=== PATIENT | male | born 1970 | race Caucasian/White ===

== ENCOUNTER 2023-05-22 10:03 | Day surgery (SDC) | payer OTHER ==
[2023-05-15 15:23] LABS: BASOPHILS % (AUTO) 0.4 % (0-1); EOSINOPHILS # (AUTO) 0.1 X10'3 (0-0.9); EOSINOPHILS % (AUTO) 1.9 % (0-6); LYMPHOCYTES # (AUTO) 1.2 X10'3 (1.1-4.8); LYMPHOCYTES % (AUTO) 15.8 % (21-51); MEAN CORPUSCULAR HEMOGLOBIN 30.5 PG (27.0-31.0); MEAN CORPUSCULAR VOLUME 92.4 FL (78-98); MEAN PLATELET VOLUME 7.4 FL (7.4-10.4); MONOCYTES # (AUTO) 0.5 X10'3 (0-0.9); NEUTROPHILS # (AUTO) 5.9 X10'3 (1.8-7.7); NEUTROPHILS % (AUTO) 75.9 % (42-75); PRE OP HEMATOCRIT 50.2 % (42.0-52.0); PRE OP HEMOGLOBIN 16.6 g/dL (14.0-17.9); PRE OP PLATELET COUNT 253 X10'3 (140-440); PRE OP WHITE BLOOD COUNT 7.7 10'3 (4.8-10.8); RED BLOOD COUNT 5.43 X10'6 (4.70-6.10); RED CELL DISTRIBUTION WIDTH 13.1 % (11.5-14.5)
[2023-05-15 15:33] LABS: BILIRUBIN,URINE NEGATIVE (Neg); CLARITY,URINE CLOUDY (Clear); COLOR,URINE YELLOW (Yellow); GLUCOSE, URINE NEGATIVE (Neg); KETONES,URINE NEGATIVE (Neg); LEUKOCYTE ESTERASE ,URINE NEGATIVE (Neg); NITRITES, URINE NEGATIVE (Neg); OCCULT BLOOD,URINE NEGATIVE (Neg); PROTEIN,URINE NEGATIVE (Neg); UROBILINOGEN,URINE 0.2 E.U/dL (0.2-1.0)
[2023-05-15 15:39] LABS: UA COLLECTION TYPE CLN CATCH MIDSTREAM
[2023-05-15 15:40] LABS: ALBUMIN 4.1 G/DL (3.4-5.0); ALBUMIN/GLOBULIN RATIO 1.2 (1.1-1.5); ALKALINE PHOSPHATASE 62 IU/L (46-116); BLOOD UREA NITROGEN 10 MG/DL (7-18); BUN/CREATININE RATIO 10.9 (10.0-20.0); CALCIUM 9.1 MG/DL (8.5-10.1); CHLORIDE 104 MMOL/L (99-107); CREATININE 0.92 MG/DL (0.60-1.10); PRE OP ALT 26 U/L (30-65); PRE OP ANION GAP 6 (8-16); PRE OP AST 15 U/L (10-37); PRE OP BILIRUB, TOTAL 0.4 MG/DL (0.0-1.0); PRE OP POTASSIUM 3.9 MMOL/L (3.4-5.1); PRE OP SODIUM 142 MMOL/L (135-145); TOTAL CARBON DIOXIDE 31.6 MMOL/L (24-32); TOTAL PROTEIN 7.4 G/DL (6.4-8.2); eGFR 87 ML/MIN
[2023-05-15 15:51] LABS: PRE OP GLUCOSE 108 MG/DL (70-104)
[2023-05-15 15:55] LABS: BACTERIA,URINE FEW /HPF (Neg); MUCUS STRANDS MANY /LPF (Neg); SQUAMOUS EPITHELIAL CELL,UR FEW /LPF (FEW); WBC,URINE 0-4 /HPF (0-4)
[2023-05-22] VITALS (13 sets, daily range): BP systolic 97–150; BP diastolic 58–89; PULSE 56–81; RESP 14–21; TEMP 98.1; O2SAT 92–100
[~2023-05-22] VITALS: Ht 177.8 cm; Wt 68.0 kg
[~2023-05-22 10:03] MED LIST: BUPIVAcaine/PF 2.5 mg/ml (0.25%) 30ml vial ONE; NO HOME MEDS; cefazolin 2gm/D5W 100mL 100 ML IV ONE; famotidine 20mg tablet PO ONE; ringers solution, lacted 1,000 ML IV SCH
--- NOTE | 2023-05-22 12:20 | NUR ---
SURGERY DELAYED R/T ADD ON CASE. PT AND NOTIFIED OF DELAY. ADMIT PROCESS COMPLETED MINUS IV INSERTION UNTIL CLOSER TO SURGERY TIME R/T POSSIBLE CANCEL. 1 CUP OF APPLE JUICE GIVEN PER PT REQUEST. TRANSFER OF CARE TO JESSICA FLEMING, REPORT GIVEN WITH ALL QUESTIONS ANSWERED.
--- NOTE | 2023-05-22 13:25 | NUR ---
INITIATED IV AND TOOK A BLOOD SUGAR. AB=[id number]
[2023-05-22] MEDS ORDERED: fentaNYL/PF 50MCG/1 ML 2ML syringe ONE (16:39)
[2023-05-22] MEDS ORDERED: midazolam 1 mg/ML 2ml injection ONE (16:40)
[2023-05-22] MEDS ORDERED: propofol inj 20 ML IV ONE (16:40)
[2023-05-22] MEDS ORDERED: rocuronium 10mg/ml inj IV ONE (16:40)
[2023-05-22] MEDS ORDERED: acetaminophen 1000 MG/100ml vial IV ONE (16:43)
[2023-05-22] MEDS ORDERED: sevoflurane 250ml liquid IH ONE (16:43)
[2023-05-22] MEDS ORDERED: ringers solution, lacted 1,000 ML IV SCH (16:45)
[2023-05-22] MEDS ORDERED: ketorolac trometh. 30mg/ml inj. IV ONE (16:45)
[2023-05-22] MEDS ORDERED: ondansetron/PF 4mg/2ml inj IV PRN (16:45)
[2023-05-22] MEDS ORDERED: proCHLORperazine 10 MG/2 ml inj IV PRN (16:45)
[2023-05-22] MEDS ORDERED: meperidine/PF 25mg/ml syringe IV PRN ×2 (16:45)
[2023-05-22] MEDS ORDERED: morphine 2 MG/ML inj. syringe IV PRN (16:45)
[2023-05-22] MEDS ORDERED: dexamethasone sod phosphate 4mg/ml inj. ONE (17:00)
[2023-05-22] MEDS ORDERED: BUPIVAcaine/PF 2.5 mg/ml (0.25%) 30ml vial IJ ONE (17:23)
[2023-05-22] MEDS ORDERED: ondansetron/PF 4mg/2ml inj ONE (18:02)
[2023-05-22] MEDS ORDERED: glycopyrrolate 0.2mg/ml inj ONE (18:32)
[2023-05-22] MEDS ORDERED: neostigmine methylsulfate 1 MG/ML 10ml vial ONE (18:32)
--- NOTE | 2023-05-22 18:44 | NUR ---
Received from OR via [facility] , accompanied by Anesthesiologist SERGEY and report given by Anesthesiolgist. [facility] UNABLE TO OBTAIN A BP 20G PIV IN LEFT HAND RUNNING LR AT 100. PATIENT ON 10L MASK WITH 100% SATURATIONS. MEDICATED FOR PAIN UPON ARRIVAL AND WILL CONTINUE TO TREAT. Addendum: 05/22/23 at 1903 by Juwan Harris RN, RN Amended: Links added.
[2023-05-22] MEDS: meperidine/PF 25mg/ml syringe IV PRN ×3 (18:54→19:58)
[2023-05-22] MEDS: morphine 4 MG/ML inj SYRINge IV PRN ×2 (19:05→19:40)
[2023-05-22] MEDS ORDERED: oxyCODONE IR 5mg (immed. release) tablet PO ONE (19:25)
--- NOTE | 2023-05-22 20:35 | NUR ---
DISCUSSED ALL DC INSTRUCTIONS, CATHETER CARE, CO2 RETENTION., DIET, CONSTIPATION, RESTRICTIONS, BOWEL CARE AND REGIME, DIET TO WHO SHOWED GOOD UNDERSTANDING AND COMPREHENSION AND UNDERSTANDING OF CONTENT. Addendum: 05/22/23 at 2037 by Juwan Harris RN, RN Amended: Links added.
[2023-05-22] MEDS ORDERED: LidoCAINE 2% Topical Jelly 11mL syringe TOP ONE (20:40)
--- NOTE | 2023-05-22 21:45 | NUR ---
Patient ready for d/c per MD orders. All d/c ppwk was rev'd with patient and patient . All questions, comments, concerns were answered at this time. Educated on the importance MONITORING FEELING OF NEED TO URINATE, no bearing down, constipation, remembering to breathe. Patient was able to ambulate safely with no loss of balance with minimal assistance within the department BUT was UNable to urinate. Bladder scanned with < 20CC in the bladder. 3 abd lap sites are CDI. VSS WERE sufficient to d/c per POLICY . Patient was wheeled out in W/C to private vehicle where family was waiting. Transferred to vehicle without incident. PATIENT AND DECIDED NOT TO VOID PRIOR TO DC 2' ONLY 20CC IN THE BLADDER. DECISION WAS MADE BY PATIENT AND . BOTH AGREE TO COME BACK INTO THE ER IF HE CANNOT VOID UPON SENSING NEED TO VOID. PATIENT AND UNDERSTAND RISKS OF NOT GETTING CATHETERIZED PRIOR TO LEAVING AND ARE WILLING TO COME BACK TO THE ER IMMEDIATELY IF PATIENT IS UNABLE TO VOID UPON SENSING A NEED BUT HAS INABILITY TO VOID. PATIENT AND SPOUSE EDUCATED ON RISKS OF A FULL BLADDER AND INABILITY TO VOID YET STILL DESIRE TO GO HOME WITHOUT VOIDING. WILL CALL TOMORROW AND CHECK ON PATIENT WE ROUTINELY DO AND ASSESS AND ADVISE NECESSARY. Addendum: 05/22/23 at 2152 by Juwan Harris RN RN Amended: Links added.
== END 2023-05-22 21:44 | disposition home or self-care (01) ==
LOC: PAS 10:03
PROVIDERS: ATTEND Surgery
DX: K42.0 Umbilical hernia with obstruction, without gangrene (principal); K40.20 Bilateral inguinal hernia, without obstruction or gangrene, not specified as recurrent; Z87.891 Personal history of nicotine dependence; Z98.890 Other specified postprocedural states; Z98.818 Other dental procedure status; Z79.899 Other long term (current) drug therapy
CPT/HCPCS: 36415; 49594; 49650; 80053; 81001; 85025; 93005; C1781; J0131; J0690; J1100; J1885; J2175; J2250; J2270; J2405; J2704; J2710; J3010; J3490; J7030; J7120; S2900; Z7506; Z7508; Z7512; A4215; A4314; A4618; C1758